=== PATIENT | female | born 1985 | race Caucasian/White ===

== ENCOUNTER 2016-11-08 14:17 | Emergency (ER) | payer OTHER ==
[~2016-11-08] VITALS: Ht 152.4 cm; Wt 60.8 kg
[2016-11-08] MEDS ORDERED: NEXI40CA PO (14:37)
[2016-11-08] MEDS ORDERED: ZYRT10TA2 PO (14:37)
[2016-11-08] MEDS ORDERED: PROZ20CA11 PO (14:37)
[2016-11-08] MEDS ORDERED: SYNT125T PO (14:37)
[2016-11-08] MEDS ORDERED: fentaNYL 100 MCG/2 ML INJECTION (J3010) IV ONE (17:15)
[2016-11-08 17:48] LABS: CONTROL LINE HCG INT CTR LINE PRESENT
[2016-11-08 17:54] LABS: ANION GAP 7 MEQ/L (8-16); BLOOD UREA NITROGEN 10 MG/DL (7-18); CALCIUM LEVEL 9.2 MG/DL (8.5-10.1); CARBON DIOXIDE LEVEL 27 MEQ/L (21-32); CHLORIDE LEVEL 104 MEQ/L (98-107); CREATININE FOR GFR 0.73 MG/DL (0.55-1.02); GLOMERULAR FILTRATION RATE > 60.0 (>60); GLUCOSE, FASTING 80 MG/DL (70-105); SODIUM LEVEL 138 MEQ/L (136-145)
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
[2016-11-08] MEDS ORDERED: ISOVUE-370 76% 100ML VIAL (Q9967) As Ordered ONE (18:11)
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
[2016-11-08] MEDS ORDERED: IBUP60TA GT (18:52)
[2016-11-08 20:53] VITALS: BP 132/85
--- NOTE | 2016-11-09 11:02 | REP ---
CT of the cervical spine: Axial images are acquired helical scanning in the reformatted in sagittal and coronal projections. The skull base, C1 and C2 are unremarkable. The prevertebral soft tissues are unremarkable. The facets are normally aligned. Vertebral body heights, interspacing alignment are normal. There are no posterior element fractures. Impression: There is no fracture or listhesis. Signed by Robert Bonilla MD 11/09/2016 10:53 A
== END 2016-11-08 21:04 | disposition home or self-care (01) ==
LOC: M ED 16:25
DX: S16.9XXA Unspecified injury of muscle, fascia and tendon at neck level, initial encounter (principal); S39.92XA Unspecified injury of lower back, initial encounter; V43.52XA Car driver injured in collision with other type car in traffic accident, initial encounter; Y92.410 Unspecified street and highway as the place of occurrence of the external cause; Y93.9 Activity, unspecified; Y99.9 Unspecified external cause status; K21.9 Gastro-esophageal reflux disease without esophagitis; E03.9 Hypothyroidism, unspecified; F32.9 Major depressive disorder, single episode, unspecified; F41.9 Anxiety disorder, unspecified; Z87.891 Personal history of nicotine dependence
CPT/HCPCS: 71010; 71260; 72040; 72072; 72125; 80048; 84703; 96374; 99282; J3010; Q9967

== ENCOUNTER 2016-11-22 00:34 | Emergency (ER) | payer OTHER ==
[~2016-11-22] VITALS: Ht 152.4 cm; Wt 63.0 kg
[~2016-11-22 00:34] MED LIST: IBUP1TAB6 GT; NEXI40CA PO; PROZ20CA11 PO; SYNT125T PO; ZYRT10TA2 PO
[2016-11-22] MEDS ORDERED: NS 1,000 ML IV ONE (01:30)
[2016-11-22] MEDS ORDERED: GI COCKTAIL 50ML BTL(HYOSCYAMINE/MAALOX/LIDOCAINE VISCOUS)(1:3:1) PO ONE (01:30)
[2016-11-22 01:58] LABS: BASO % 0.2 % (0.0-1.0); EOS # 0.4 K/mm3 (0.0-0.50); EOS % 2.1 % (0.0-3.0); LARGE UNSTAINED CELL # 0.1 K/mm3 (0.0-0.4); LARGE UNSTAINED CELL % 0.6 % (0.0-4.0); LYMPH # 1.8 K/mm3 (1.5-4.5); LYMPH % 9.9 % (24.0-44.0); MEAN CORPUSCULAR HGB CONC 34.3 g/dl (32.0-36.5); MEAN CORPUSCULAR VOLUME 90.3 fl (80.0-96.0); MONO # 0.6 K/mm3 (0.0-0.8); MONO % 3.3 % (0.0-5.0); NEUTROPHILS # 14.2 K/mm3 (1.8-7.7); NEUTROPHILS % 83.9 % (36.0-66.0); PLATELET COUNT, AUTOMATED 300 k/mm3 (150-450); RED CELL DISTRIBUTION WIDTH 12.6 % (11.5-14.5)
[2016-11-22 02:46] LABS: ALBUMIN 3.7 GM/DL (3.2-5.2); ALBUMIN/GLOBULIN RATIO 1.06 (1.00-1.93); ALKALINE PHOSPHATASE 78 U/L (45-117); ALT/SGPT 30 U/L (12-78); ANION GAP 9 MEQ/L (8-16); AST/SGOT 21 U/L (15-37); BILIRUBIN,DIRECT < 0.1 MG/DL (0.0-0.2); BILIRUBIN,TOTAL 0.2 MG/DL (0.2-1.0); BLOOD UREA NITROGEN 20 MG/DL (7-18); CALCIUM LEVEL 8.4 MG/DL (8.5-10.1); CARBON DIOXIDE LEVEL 28 MEQ/L (21-32); CHLORIDE LEVEL 102 MEQ/L (98-107); CREATININE FOR GFR 0.76 MG/DL (0.55-1.02); GLOMERULAR FILTRATION RATE > 60.0 (>60); GLUCOSE, FASTING 93 MG/DL (70-105); SODIUM LEVEL 139 MEQ/L (136-145); TOTAL PROTEIN 7.2 GM/DL (6.4-8.2)
[2016-11-22 02:58] LABS: CONTROL LINE HCG INT CTR LINE PRESENT
[2016-11-22] MEDS ORDERED: ISOVUE-370 76% 100ML VIAL (Q9967) As Ordered ONE (03:33)
[2016-11-22] MEDS ORDERED: MORPHINE 4 MG/ML 1ML SYRINGE IV PRN (03:45)
[2016-11-22] MEDS ORDERED: ONDANSETRON 4MG/2ML VIAL (J2405) IV ONE (03:45)
--- NOTE | 2016-11-22 04:27 | REP ---
The clinical: Abdominal pain. Technique: Axial contrast enhanced images from the lung bases to the pubic symphysis using 100 ml Isovue 370 intravenous contrast material with coronal and sagittal re-formations. Findings: Lung bases are clear. Visualized heart and pericardium normal. Liver, spleen, pancreas, bilateral adrenal glands and kidneys are normal. The patient is status post cholecystectomy and appendectomy. Mildly prominent small bowel including fluid-filled loops of small bowel in the pelvis measuring up to 2 cm diameter suggest the possibility of enteritis and correlation is recommended. Stomach/duodenum and colon including rectosigmoid appear normal. Pelvis demonstrates normal bladder and age-appropriate uterus/adnexa. Myomatous changes to the uterus cannot definitively be excluded. No pelvic fluid or ascites. No adenopathy. No free air. Vasculature is normal. Surrounding musculoskeletal structures are intact. Impression: Mildly prominent small bowel with areas of mural thickening as well as fluid filled loops of bowel suggest the possibility of enteritis and correlation is recommended. Signed by Tanmay Goldman MD 11/22/2016 04:18 A
[2016-11-22] MEDS ORDERED: ZOFR4TAB3 PO (06:07)
[2016-11-22] MEDS ORDERED: OXYCODONE/APAP 5MG/325MG(BULK FOR ED) 1 TABLET PO ONE (06:15)
[2016-11-22 06:20] VITALS: BP 99/69
--- NOTE | 2016-11-22 12:18 | ECGEPIP ---
Stationary ECG Study [facility] - ED Test Date: 2016-11-22 Pat Name: BRUCE MENDEZ Department: Room: - Gender: F Research Hydrologist: michelet : 1985 Requested By: PENNY Jc Order Number: [id number] Reading MD: Lupillo Melo Measurements Intervals Central Rate: 113 P: 23 NC: 157 QRS: 41 QRSD: 81 T: 17 QT: 346 QTc: 476 Interpretive Statements SINUS TACHYCARDIA Electronically Signed On 11-22-2016 12:17:30 EDT by Lupillo Melo
== END 2016-11-22 06:48 | disposition home or self-care (01) ==
LOC: M ED 02:19
DX: K52.9 Noninfective gastroenteritis and colitis, unspecified (principal); K21.9 Gastro-esophageal reflux disease without esophagitis; E03.9 Hypothyroidism, unspecified; F41.9 Anxiety disorder, unspecified; Z79.899 Other long term (current) drug therapy; Z88.2 Allergy status to sulfonamides; Z88.8 Allergy status to other drugs, medicaments and biological substances
CPT/HCPCS: 74177; 80048; 80076; 82550; 82553; 83690; 84703; 85025; 93005; 93041; 96361; 96374; 96375; 99285; J2405; Q9967

== ENCOUNTER → 2017-06-26 | Outpatient (CLI) | payer OTHER | LOC: M LRY 10:18 | DX: R22.41 Localized swelling, mass and lump, right lower limb (principal) | CPT/HCPCS: 73660; 81025 ==

== ENCOUNTER → 2017-10-14 | Outpatient (CLI) | payer OTHER ==
[~2017-10-14] MED LIST changes: -IBUP1TAB6 GT; +METHACHOLINE KIT (J7674) INH; -NEXI40CA PO; -PROZ20CA11 PO; -SYNT125T PO; -ZYRT10TA2 PO
== END ==
LOC: M CARPUL 09:29
DX: R06.00 Dyspnea, unspecified (principal); R94.2 Abnormal results of pulmonary function studies
CPT/HCPCS: J7674

== ENCOUNTER → 2017-10-29 | Outpatient (CLI) | payer OTHER | LOC: M RAD 09:34 | DX: R91.8 Other nonspecific abnormal finding of lung field (principal); J84.10 Pulmonary fibrosis, unspecified | CPT/HCPCS: 71250 ==

== ENCOUNTER → 2018-08-07 | Outpatient (REF) | payer OTHER ==
[~2018-08-07] MED LIST changes: +IBUP1TAB6 GT; -METHACHOLINE KIT (J7674) INH; +NEXI40CA PO; +PROZ20CA11 PO; +SYNT125T PO; +ZOFR4TAB14 PO; +ZYRT10CA5 PO
[2018-08-07 20:26] LABS: BASO % 0.3 % (0.0-1.0); EOS # 0.1 10^3/uL (0.0-0.50); EOS % 1.3 % (0.0-3.0); HEMATOCRIT 38.1 % (36.0-47.0); HEMOGLOBIN 12.2 g/dl (12.0-15.5); LYMPH # 2.6 10^3/uL (1.5-4.5); LYMPH % 26.4 % (24.0-44.0); MEAN CORPUSCULAR HEMOGLOBIN 28.8 pg (27.0-33.0); MEAN CORPUSCULAR VOLUME 89.9 fl (80.0-96.0); MONO # 0.6 10^3/uL (0.0-0.8); MONO % 6.3 % (0.0-5.0); NEUTROPHILS # 6.4 10^3/uL (1.8-7.7); NEUTROPHILS % 65.4 % (36.0-66.0); PLATELET COUNT, AUTOMATED 296 10^3/uL (150-450); RED BLOOD COUNT 4.24 10^6/uL (4.00-5.40); WHITE BLOOD COUNT 9.7 10^3/uL (4.0-10.0)
[2018-08-07 20:36] LABS: ALBUMIN 4.1 GM/DL (3.2-5.2); ALT/SGPT 24 U/L (12-78); BILIRUBIN,TOTAL 0.3 MG/DL (0.2-1.0); BLOOD UREA NITROGEN 17 MG/DL (7-18); CALCIUM LEVEL 8.5 MG/DL (8.5-10.1); CARBON DIOXIDE LEVEL 26 MEQ/L (21-32); CHLORIDE LEVEL 106 MEQ/L (98-107); CREATININE FOR GFR 0.74 MG/DL (0.55-1.30); GLOMERULAR FILTRATION RATE > 60.0 (>60); GLUCOSE, FASTING 85 MG/DL (70-100); SODIUM LEVEL 139 MEQ/L (136-145); TOTAL PROTEIN 7.4 GM/DL (6.4-8.2); URIC ACID 4.4 MG/DL (2.6-6.0)
== END ==
LOC: M SFHCLERA 19:03
PROVIDERS: ATTEND Nurse Practitioner Family
DX: M79.674 Pain in right toe(s) (principal)

== ENCOUNTER → 2018-08-07 | Outpatient (CLI) | payer OTHER ==
--- NOTE | 2018-08-07 18:19 | REP ---
Right foot: Four views. History: Pain. Findings: Four views right foot show overall normal mineralization. There is no evidence of fracture or subluxation. Achilles calcaneal spurring is noted. Bones, joints and soft tissues are otherwise unremarkable. Impression: Achilles heel spurring. Otherwise negative right foot radiographs. Electronically Signed by Vaughn Cole MD 08/07/2018 06:09 P
== END ==
LOC: M LRY 17:16
PROVIDERS: ATTEND Nurse Practitioner Family
DX: M79.674 Pain in right toe(s) (principal); M77.31 Calcaneal spur, right foot